=== PATIENT | female | born 1960 | race African-American/Black ===

== ENCOUNTER 2017-08-20 18:10 | Emergency (ER) | payer OTHER ==
[~2017-08-20] VITALS: Ht 154.9 cm; Wt 73.5 kg
--- NOTE | ~2017-08-20 | EKG ---
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
--- NOTE | ~2017-08-20 | EKG ---
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 : 1960 Requested By: Nestor Laureano Order Number: [id number] MD: Doyle Santana Measurements Intervals [place] Rate: 70 P: 24 [place]: 172 QRS: 52 QRSD: 97 T: 93 QT: 404 QTc: 436 Interpretive Statements Sinus rhythm Nonspecific ST and T wave abnormality Compared to ECG 06/06/2003 19:42:15 ST and T wave abnormality is less pronounced Electronically Signed On 08-22-2017 10:04:58 CDT by Doyle Santana [email or web address] <ELECTRONICALLY SIGNED> By: Doyle Santana MD, [facility] 08/22/17 1004 16 16 Doyle Santana MD, [facility] /EPI
[2017-08-20] MEDS ORDERED: PLAVIX 75 MG TA75 M1 PO (19:24)
[2017-08-20] MEDS ORDERED: COREG6.25 MG PO (19:24)
[2017-08-20] MEDS ORDERED: LIPITOR10 MG PO (19:24)
[2017-08-20] MEDS ORDERED: COZAAR 50 MG TA50 M2 PO (19:25)
[2017-08-20] MEDS ORDERED: NOVOLOG100 UNIT/1 SUBQ (19:25)
[2017-08-20] MEDS ORDERED: LANTUS100 UNIT/M SUBQ (19:25)
[2017-08-20] MEDS ORDERED: NORVASC2.5 MG PO (19:26)
[2017-08-20] MEDS ORDERED: HYZAAR 100-251 EACH PO (19:26)
[2017-08-20] MEDS ORDERED: LIORESAL 10 MG10 MG PO (19:27)
[2017-08-20 19:37] LABS: HEMATOCRIT 37.9 % (37.0-47.0); HEMOGLOBIN 12.6 gm/dL (12.0-15.0); MCH 29.9 pg (26.0-34.0); MCHC 33.2 g/dL (28.0-37.0); PLATELET COUNT 246 thou/uL (150-400); RBC 4.21 mil/uL (4.20-5.00); RDW 13.2 % (10.5-14.5); WBC 5.7 thou/uL (4.0-11.0)
[2017-08-20 19:50] LABS: ANION GAP 7 mmol/L (7-16); BUN 19 mg/dL (7-18); CALCIUM 9.3 mg/dL (8.5-10.1); CHLORIDE 101 mmol/L (98-107); CO2 28 mmol/L (21-32); CREATININE 0.8 mg/dL (0.6-1.0); GLUCOSE 265 mg/dL (74-106); POTASSIUM 4.2 mmol/L (3.5-5.1); SODIUM 136 mmol/L (136-145)
[2017-08-20 19:57] LABS: APTT 36.4 Seconds (24.5-32.8); D-DIMER 0.19 ug/mLFEU (0.19-0.50); PROTIME 10.3 Seconds (9.3-11.4)
[2017-08-20 19:59] LABS: ALBUMIN 3.8 g/dL (3.4-5.0); MAGNESIUM 1.8 mg/dL (1.8-2.4); SGOT 23 U/L (15-37); SGPT 31 U/L (30-65); TOTAL BILIRUBIN 0.7 mg/dL (<0.1-1.0); TOTAL PROTEIN 7.4 g/dL (6.4-8.2); TROPONIN-I < 0.04 ng/mL (<0.06)
[2017-08-20 20:02] LABS: ABSOLUTE NEUTROPHILS 2.9 thou/uL (1.4-8.2)
[2017-08-20] MEDS ORDERED: PREDNISONE 20 M20 MG PO (20:31)
[2017-08-20] MEDS ORDERED: TRAMADOL 50 MG50 MG PO (20:31)
[2017-08-20 20:46] VITALS: BP 152/77
[2017-08-20] MEDS ORDERED: PERCOCET PO (20:53)
== END 2017-08-20 21:03 | disposition home or self-care (01) ==
LOC: ER 18:10
PROVIDERS: Emergency Medicine
DX: S20.01XA Contusion of right breast, initial encounter (principal); S40.021A Contusion of right upper arm, initial encounter; W18.30XA Fall on same level, unspecified, initial encounter; Y93.89 Activity, other specified; Y92.89 Other specified places as the place of occurrence of the external cause; Y99.8 Other external cause status

== ENCOUNTER 2018-07-11 23:25 | Emergency (ER) | payer OTHER ==
[~2018-07-11] VITALS: Ht 160 cm; Wt 68.0 kg
[~2018-07-11 23:25] MED LIST: COREG6.25 MG PO; COZAAR 50 MG TA50 M2 PO; GABAPENTIN 100100 MG PO; HYZAAR 100-251 EACH PO; LANTUS100 UNIT/M SUBQ; LIORESAL 10 MG10 MG PO; LIPITOR10 MG PO; LOPRESSOR50 PO; NORVASC2.5 MG PO; NOVOLOG100 UNIT/1 SUBQ; PENICILLIN VK500 M1 PO; PERCOCET PO; PLAVIX 75 MG TA75 M1 PO; PREDNISONE 20 M20 MG PO; TRAMADOL 50 MG50 MG PO
[2018-07-12 00:27] LABS: HEMATOCRIT 37.6 % (37.0-47.0); HEMOGLOBIN 12.7 gm/dL (12.0-15.0); MCHC 33.7 g/dL (28.0-37.0); MCV 88.9 fL (80.0-100.0); RBC 4.23 mil/uL (4.20-5.00); RDW 13.7 % (10.5-14.5); WBC 6.3 thou/uL (4.0-11.0)
[2018-07-12 00:40] LABS: ANION GAP 8 mmol/L (7-16); BUN 35 mg/dL (7-18); CALCIUM 8.8 mg/dL (8.5-10.1); CHLORIDE 102 mmol/L (98-107); CO2 28 mmol/L (21-32); CREATININE 1.3 mg/dL (0.6-1.0); GLUCOSE 132 mg/dL (74-106); POTASSIUM 3.3 mmol/L (3.5-5.1); SODIUM 138 mmol/L (136-145)
[2018-07-12 00:49] LABS: ALBUMIN 3.8 g/dL (3.4-5.0); LIPASE 73 U/L (73-393); SGOT 29 U/L (15-37); SGPT 45 U/L (30-65); TOTAL BILIRUBIN 0.9 mg/dL (<0.1-1.0); TOTAL PROTEIN 7.5 g/dL (6.4-8.2); TROPONIN-I <0.06 ng/mL (<0.06)
[2018-07-12 03:30] VITALS: BP 127/61
[2018-07-12 03:34] LABS: URINE BILIRUBIN NEGATIVE (Negative); URINE BLOOD NEGATIVE (Negative); URINE CLARITY CLEAR; URINE COLOR YELLOW; URINE GLUCOSE-RANDOM* NEGATIVE (Negative); URINE KETONES 1+ (Negative); URINE LEUKOCYTES-REFLEX NEGATIVE (Negative); URINE NITRITE-REFLEX NEGATIVE (Negative); URINE PROTEIN (DIPSTICK) NEGATIVE (Negative); URINE UROBILINOGEN 0.2 E.U./dl (0.2-1.0)
--- NOTE | 2018-07-12 16:53 | EKG ---
[address] [address] ELECTROCARDIOGRAM REPORT Name: ADRIAN TELLEZ 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: MAVIS : 1960 Requested By: Glenis Monae Order Number: [id number] MD: Doyle Santana Measurements Intervals [place] Rate: 65 P: 34 [place]: 179 QRS: 64 QRSD: 102 T: 77 QT: 459 QTc: 478 Interpretive Statements Sinus rhythm Anteroseptal infarct, old Compared to ECG 08/20/2017 18:17:12 No significant change was found Electronically Signed On 07-12-2018 16:53:39 CDT by Doyle Santana [email or web address] ��������������������������������������������� <ELECTRONICALLY SIGNED> ���������������������������������������� By: Doyle Santana MD, [facility] ��������������������������������������������� 07/12/18 1653 0026 0026 Doyle Santana MD, [facility] /EPI
== END 2018-07-12 03:30 | disposition home or self-care (01) ==
LOC: ER 23:25
PROVIDERS: Student in an Organized Health Care Education/Training Program
DX: R11.2 Nausea with vomiting, unspecified (principal); R19.7 Diarrhea, unspecified; T50.995A Adverse effect of other drugs, medicaments and biological substances, initial encounter; E11.9 Type 2 diabetes mellitus without complications; F32.9 Major depressive disorder, single episode, unspecified; Z88.8 Allergy status to other drugs, medicaments and biological substances; Z91.012 Allergy to eggs; Z79.4 Long term (current) use of insulin; Y92.89 Other specified places as the place of occurrence of the external cause